=== PATIENT | male | born 2005 | race Two or more races ===

== ENCOUNTER 2024-11-09 01:39 | Emergency (ER) | payer OTHER ==
[2024-11-09 01:48] VITALS: TEMP 98.4; BMI 18.1
[2024-11-09] MEDS ORDERED: DEXAMETHASONE SOD PHOSPHATE 10 MG/1 ML VIAL ONE (02:21)
[2024-11-09] MEDS ORDERED: KETOROLAC TROMETHAMINE 15 MG/ML VIAL ONE (02:21)
[2024-11-09] MEDS: DEXAMETHASONE SOD PHOSPHATE 10 MG/1 ML VIAL IVPUSH ONE (02:31)
[2024-11-09] MEDS: KETOROLAC TROMETHAMINE 15 MG/ML VIAL IVPUSH ONE (02:31)
[2024-11-09] MEDS: LACTATED RINGERS SOLUTION 1000 ML INFUS.BAG IV ONE (02:32)
[2024-11-09] MEDS ORDERED: AMPICILLIN NA/SULBACTAM NA 3 GM/100 ML BAG IVPB ONE (02:33)
[2024-11-09] MEDS: AMPICILLIN NA/SULBACTAM NA 3 GM in SODIUM CHLORIDE 100 ML IVPB ONE (02:53)
[2024-11-09 03:05] LABS: BASOPHILS # 0.06 x10^3/uL (0.01-0.08); EOSINOPHIL % 0.7 % (0.8-7.0); EOSINOPHILS # 0.11 x10^3/uL (0.04-0.54); MCHC 32.5 g/dl (32.3-36.5); MEAN PLT VOLUME 9.9 fl (9.4-12.4); MONOCYTE # 0.86 x10^3/uL (0.30-0.82); MONOCYTE % 5.1 % (5.3-12.2); PLATELET COUNT 317 x10^3/uL (163-337); RDW 12.2 % (12.0-15.6)
[2024-11-09 03:24] LABS: POTASSIUM 4.8 mmol/L (3.5-5.1)
[2024-11-09 03:27] LABS: ALBUMIN 4.2 g/dl (3.4-5.0); BLOOD UREA NITROGEN 15.5 mg/dL (7-18); CALCIUM 10.2 mg/dL (8.5-10.1)
[2024-11-09 03:30] LABS: CREATININE 1.1 mg/dL (0.55-1.3)
[2024-11-09 03:33] LABS: TOT PROT 8.2 g/dl (6.4-8.2)
[2024-11-09 05:18] VITALS: BP 103/44; PULSE 67; RESP 19
== END 2024-11-09 05:51 | disposition short-term general hospital (02) ==
LOC: JER 01:39
PROC: 3E03329 Introduction of Other Anti-infective into Peripheral Vein, Percutaneous Approach (ICD-10-PCS; principal; 2024-11-09)
PROC: 3E033GC Introduction of Other Therapeutic Substance into Peripheral Vein, Percutaneous Approach (ICD-10-PCS; 2024-11-09)
PROC: 3E0333Z Introduction of Anti-inflammatory into Peripheral Vein, Percutaneous Approach (ICD-10-PCS; 2024-11-09)
DX: J36 Peritonsillar abscess (principal); R13.10 Dysphagia, unspecified
CPT/HCPCS: 0241U-QW; 36415; 70491-TC; 80053; 85025; 96365; 96375; 99285-25; J1100; Q9967